=== PATIENT | male | born 1955 | race Hispanic/Latino ===

== ENCOUNTER → 2018-07-22 | Outpatient (CLI) | payer OTHER | END | disposition home or self-care (01) | LOC: RAH 13:22 | PROVIDERS: ATTEND Internal Medicine | DX: M13.841 Other specified arthritis, right hand (principal) | CPT/HCPCS: 73130 ==

== ENCOUNTER → 2020-11-03 | Outpatient (CLI) | payer OTHER | END | disposition home or self-care (01) | LOC: OIH 16:29 | PROVIDERS: ATTEND Internal Medicine Cardiovascular Disease | DX: Z13.6 Encounter for screening for cardiovascular disorders (principal); I25.10 Atherosclerotic heart disease of native coronary artery without angina pectoris | CPT/HCPCS: 75571 ==

== ENCOUNTER → 2022-05-24 | Outpatient (CLI) | payer OTHER | END | disposition home or self-care (01) | LOC: SHCH 10:55 | PROVIDERS: ATTEND Internal Medicine Cardiovascular Disease | DX: I35.0 Nonrheumatic aortic (valve) stenosis (principal); E78.5 Hyperlipidemia, unspecified; I47.1 Supraventricular tachycardia | CPT/HCPCS: 93306 ==

== ENCOUNTER → 2024-11-19 | Outpatient (CLI) | payer OTHER ==
--- NOTE | 2024-11-20 13:41 | HMCSR ---
APPROVED REPORT EXAM: Two-dimensional and M-mode echocardiogram with Doppler and color Doppler. INDICATION ICD: i47.10, r06.09 2D Dimensions RVDd4.7 cmLVEF(%)46.6 (>50%)LVED Vol(simp.)135.0 mL IVSd1.1 (0.7-1.1cm)FS(%)23 %LVES Vol(simp.)72.0 mL LVDd4.8 (3.8-5.6cm)Ao Root(2D)3.6 (2.0-3.7cm)LVEF(%, simp.)47 % PWd1.1 (0.7-1.1cm)LVOT diam2.1 (1.8-2.4cm)LA ESV INDEX (BP)41.79 mL/m2 LVDs3.7 (2.5-4.0cm)IVC diam1.9 cm Aortic Valve AoV Vmax2.2 m/Desirae Peak GR18.8 mmHgLVOT Vmax1.0 m/s AoV VTI0.5 mAo Mean GR10.8 mmHgLVOT VTI0.22 m JAYME (VMAX)1.7 cm2Al P1/2T719 msAVA (VTI) 1.7 cm2 Mitral Valve MV E Hugi532.4 cm/sDECEL Wahp675 ms MV A Suif370.8 cm/sP 1/2 T66 ms E/A ratio1.3MVA (PHT)3.3 cm2 MR Max PG87 mmHg TDI E/E' Rhbscl66.5E/E' Smordyc10.9 Pulmonary Valve PV Vmax1.1 m/sPV VTI0.28 mPV Mean GR3 mmHg PV Peak GR5.1 mmHg Tricuspid Valve TR Vmax2.8 m/sRAP (EST) 8 bsIyCNVR50.8 mmHg TR Peak GR31.8 mmHg Left Ventricle The left ventricle structure and function is normal. There is normal LV segmental wall motion. There is mild left ventricular hypertrophy. LVEF is 50-55% with normal wall motion. Grade 2 diastolic dysfu nction. Right Ventricle The right ventricle is moderately dilated. The right ventricular systolic function is normal. Atria The left atrium is mildly to moderately dilated. The right atrium size is normal. Aortic Valve Aortic valve is trileaflet. Aortic valve leaflets are sclerotic but open well. Mild aortic regurgitat ion. Mild gradient noted but valve does not appear significantly stenotic. Mitral Valve Mitral annular calcification is mild. Mitral valve leaflets are sclerotic but open well. Mitral regur gitation is mild. There is no mitral valve stenosis. Tricuspid Valve The tricuspid valve leaflets appear normal. There is mild tricuspid regurgitation. Right ventricular systolic pressure is estimated at 30-40 mmHg. Pulmonic Valve The pulmonic valve leaflets appear normal. There is no pulmonic valvular regurgitation. Great Vessels The aortic root is normal in size. IVC is dilated and collapses >50% with inspiration. Pericardium No pericardial effusion. Conclusion LVEF is 50-55% with normal wall motion. Grade 2 diastolic dysfunction. The right ventricle is moderately dilated. Mild aortic regurgitation. Mitral regurgitation is mild.
== END | disposition home or self-care (01) ==
LOC: SHCH 10:10
PROVIDERS: ATTEND Internal Medicine Cardiovascular Disease
DX: I08.3 Combined rheumatic disorders of mitral, aortic and tricuspid valves (principal); I47.10 Supraventricular tachycardia, unspecified; R06.09 Other forms of dyspnea
CPT/HCPCS: 93306